=== PATIENT | female | born 1955 | race Caucasian/White ===

== ENCOUNTER 2017-04-19 10:44 | Emergency (ER) | payer MEDICAID ==
[~2017-04-19] VITALS: Ht 152.4 cm; Wt 69.6 kg
[2017-04-19 14:09] VITALS: BP 113/69
== END 2017-04-19 15:05 | disposition left against medical advice (07) ==
LOC: ED 10:53
DX: F10.229 Alcohol dependence with intoxication, unspecified (principal); H10.022 Other mucopurulent conjunctivitis, left eye
CPT/HCPCS: 99283

== ENCOUNTER 2017-04-20 03:32 | Emergency (ER) | payer MEDICAID ==
[~2017-04-20] VITALS: Ht 160 cm; Wt 75.0 kg
[2017-04-20] MEDS ORDERED: IBUPROFEN 200 MG TABLET ONE (04:22)
[2017-04-20] MEDS ORDERED: IBUPROFEN 200 MG TABLET PO ONE (04:30)
[2017-04-20 04:49] VITALS: BP 117/71
== END 2017-04-20 05:29 | disposition home or self-care (01) ==
LOC: ED 03:46
DX: F10.120 Alcohol abuse with intoxication, uncomplicated (principal); M54.5 Low back pain; M25.511 Pain in right shoulder
CPT/HCPCS: 99283

== ENCOUNTER 2017-06-07 13:50 | Emergency (ER) | payer MEDICAID ==
[~2017-06-07] VITALS: Ht 167.6 cm; Wt 70.0 kg
[2017-06-07] MEDS ORDERED: SODIUM CHLORIDE 0.9% 1,000ML IVBOLUS ONE (15:00)
[2017-06-07 15:04] LABS: HEMATOCRIT 37.9 % (34.6-47.8); HEMOGLOBIN 12.8 g/dL (11.7-16.4); WHITE BLOOD COUNT 8.9 x10^3/uL (3.4-10)
[2017-06-07 15:09] LABS: BLOOD UREA NITROGEN 7 mg/dL (7-18)
[2017-06-07 16:22] VITALS: BP 99/73
[2017-06-07] MEDS ORDERED: IBUPROFEN 200 MG TABLET ONE (17:23)
[2017-06-07] MEDS ORDERED: IBUPROFEN 200 MG TABLET PO ONE (17:30)
== END 2017-06-07 18:30 | disposition home or self-care (01) ==
LOC: ED 14:01
DX: F10.229 Alcohol dependence with intoxication, unspecified (principal); E86.0 Dehydration; E87.0 Hyperosmolality and hypernatremia
CPT/HCPCS: 36415; 80048; 82040; 85025; 99284

== ENCOUNTER 2017-09-20 14:16 | Emergency (ER) | payer MEDICAID ==
[~2017-09-20] VITALS: Ht 152.4 cm; Wt 56.5 kg
[2017-09-20] MEDS ORDERED: THIAMINE 100MG TABLET ONE (14:40)
[2017-09-20] MEDS ORDERED: ONDANSETRON ODT 4 MG ONE (14:41)
[2017-09-20] MEDS ORDERED: THIAMINE 100MG TABLET PO ONE (15:00)
[2017-09-20] MEDS ORDERED: ONDANSETRON ODT 4 MG PO ONE (15:00)
[2017-09-20 15:37] VITALS: BP 142/70
[2017-09-20] MEDS ORDERED: LORazepam 2 MG/ML, 1ML ONE (15:56)
[2017-09-20] MEDS ORDERED: LORazepam 1MG TABLET PO ONE (16:00)
[2017-09-20] MEDS ORDERED: SODIUM CHLORIDE 0.9% 1,000ML IVBOLUS ONE (16:00)
[2017-09-20] MEDS ORDERED: LORazepam 2 MG/ML, 1ML IVPush ONE (16:00)
[2017-09-20] MEDS ORDERED: ONDANSETRON 2MG/ML, 2ML IVPush ONE (16:00)
[2017-09-20] MEDS ORDERED: ONDANSETRON 2MG/ML, 2ML ONE (16:11)
== END 2017-09-20 18:06 | disposition home or self-care (01) ==
LOC: ED 18:00
DX: F10.10 Alcohol abuse, uncomplicated (principal); H10.023 Other mucopurulent conjunctivitis, bilateral; F17.210 Nicotine dependence, cigarettes, uncomplicated
CPT/HCPCS: 96361; 96374; 96375; 99284; J2060; J2405; J7030; Q0162

== ENCOUNTER 2017-09-26 00:51 | Emergency (ER) | payer MEDICAID ==
[~2017-09-26] VITALS: Ht 144.8 cm; Wt 80.0 kg
[2017-09-26 00:53] VITALS: BP 122/62
[2017-09-26] MEDS ORDERED: DIPH,PERTUSS(ACELL),TET VAC/PF 0.5 ML IM-VACC ONE ×2 (01:00→01:04)
[2017-09-26] MEDS ORDERED: LIDOCAINE-MPF 1%, 5ML INFIL ONE (01:00)
[2017-09-26] MEDS ORDERED: BACITRACIN ZINC OINT 500U/GM, 0.9 GM ONE (02:30)
== END 2017-09-26 02:59 | disposition home or self-care (01) ==
LOC: ED 01:04
DX: S01.112A Laceration without foreign body of left eyelid and periocular area, initial encounter (principal); F10.20 Alcohol dependence, uncomplicated; F17.200 Nicotine dependence, unspecified, uncomplicated; W06.XXXA Fall from bed, initial encounter; Y93.89 Activity, other specified; Y92.89 Other specified places as the place of occurrence of the external cause; Y99.9 Unspecified external cause status
CPT/HCPCS: 12014; 70450; 90471; 90715; 99284

== ENCOUNTER 2017-10-01 12:47 | Emergency (ER) | payer MEDICAID ==
[~2017-10-01] VITALS: Ht 152.4 cm; Wt 62.8 kg
[2017-10-01 12:48] VITALS: BP 159/91
== END 2017-10-01 13:22 | disposition home or self-care (01) ==
LOC: ED 13:16
DX: S01.81XD Laceration without foreign body of other part of head, subsequent encounter (principal); X58.XXXD Exposure to other specified factors, subsequent encounter; F10.20 Alcohol dependence, uncomplicated
CPT/HCPCS: 99282

== ENCOUNTER 2017-11-07 06:03 | Emergency (ER) | payer MEDICAID ==
[~2017-11-07] VITALS: Ht 152.4 cm; Wt 72.0 kg
[2017-11-07] MEDS ORDERED: NAPROXEN 500 MG TABLET PO ONE (08:00)
[2017-11-07 08:05] VITALS: BP 159/91
== END 2017-11-07 08:37 | disposition home or self-care (01) ==
LOC: ED 08:17
DX: G89.11 Acute pain due to trauma (principal); M25.551 Pain in right hip; W19.XXXA Unspecified fall, initial encounter; Y93.83 Activity, rough housing and horseplay; Y92.009 Unspecified place in unspecified non-institutional (private) residence as the place of occurrence of the external cause; Y99.9 Unspecified external cause status
CPT/HCPCS: 72190; 99284

== ENCOUNTER 2018-05-21 15:19 | Emergency (ER) | payer MEDICAID ==
[~2018-05-21] VITALS: Ht 144.8 cm; Wt 61.0 kg
[2018-05-21 15:23] VITALS: BP 120/69
[2018-05-21] MEDS ORDERED: KETOROLAC 30 MG/1 ML IM ONE (15:30)
[2018-05-21] MEDS ORDERED: KETOROLAC 30 MG/1 ML ONE (15:50)
== END 2018-05-21 16:04 | disposition left against medical advice (07) ==
LOC: ED 15:58
DX: M25.562 Pain in left knee (principal); M25.561 Pain in right knee; F10.20 Alcohol dependence, uncomplicated; F17.200 Nicotine dependence, unspecified, uncomplicated
CPT/HCPCS: 99284

== ENCOUNTER 2018-05-25 08:09 | Inpatient (IN) | payer MEDICAID ==
[~2018-05-25] VITALS: Ht 144.8 cm; Wt 58.5 kg
[2018-05-25] MEDS ORDERED: FAMOTIDINE 20 MG/2 ML IVP ONE (08:30)
[2018-05-25] MEDS ORDERED: LORazepam 1MG TABLET PO ONE (08:30)
[2018-05-25] MEDS ORDERED: THIAMINE 100 MG/ML, 2ML IM ONE (08:30)
[2018-05-25] MEDS ORDERED: MAALOX/HYOSCYAMINE/LIDOCAINE 45 ML BTL PO ONE (08:30)
[2018-05-25] MEDS ORDERED: SODIUM CHLORIDE 0.9% 1,000ML IVBOLUS ONE (08:30)
[2018-05-25] MEDS ORDERED: ONDANSETRON ODT 4 MG PO ONE (08:30)
[2018-05-25 08:39] LABS: BASOPHILS # (AUTO) 0.02 x10^3/uL (0-0.1); BASOPHILS % (AUTO) 1 % (0-1); EOSINOPHILS % (AUTO) 0 % (1-7); LYMPHOCYTES # (AUTO) 0.49 x10^3/uL (1-3.4); LYMPHOCYTES % (AUTO) 9 % (22-44); MD NO; MEAN CORPUSCULAR HGB CONC 33.3 g/dL (32.4-35.8); MEAN PLATELET VOLUME 8.9 fL (7.4-10.4); MONOCYTES # (AUTO) 0.34 x10^3/uL (0.2-0.8); MONOCYTES % (AUTO) 6 % (2-9); NEUTROPHILS # (AUTO) 4.74 x10^3/uL (1.8-6.8); NEUTROPHILS % (AUTO) 85 % (42-75); PLATELET COUNT 117 x10^3/uL (130-400); RED BLOOD COUNT 3.73 x10^6/uL (3.82-5.3); RED CELL DISTRIBUTION WIDTH 15.1 % (9.6-15.2)
[2018-05-25 08:52] LABS: ALANINE AMINOTRANSFERASE 60 U/L (12-78); ALBUMIN 3.6 g/dL (3.4-5.0); ANION GAP 13 mmol/L (5-15); CALCIUM 8.9 mg/dL (8.5-10.1); CHLORIDE 106 mmol/L (98-107); CREATININE 0.58 mg/dL (0.55-1.02)
[2018-05-25 08:54] LABS: ALKALINE PHOSPHATASE 121 U/L (45-117); BILIRUBIN,TOTAL 1.1 mg/dL (0.2-1.0); TOTAL PROTEIN 8.6 g/dL (6.4-8.2)
[2018-05-25] MEDS ORDERED: ONDANSETRON ODT 4 MG ONE (09:13)
[2018-05-25] MEDS ORDERED: THIAMINE 100 MG/ML, 2ML ONE (09:13)
[2018-05-25] MEDS ORDERED: FAMOTIDINE 20 MG/2 ML ONE (09:14)
[2018-05-25] MEDS ORDERED: LORazepam 1MG TABLET ONE (09:14)
[2018-05-25] MEDS ORDERED: MAALOX/HYOSCYAMINE/LIDOCAINE 45 ML BTL ONE (09:14)
[2018-05-25] MEDS ORDERED: LORazepam 2 MG/ML, 1ML IVPush PRN (09:30)
[2018-05-25] MEDS ORDERED: LORazepam 2 MG/ML, 1ML ONE (09:34)
[2018-05-25] MEDS ORDERED: MAGNESIUM SULFATE PMX 2GM/50ML 50 ML IV ONE (10:00)
[2018-05-25] MEDS: SODIUM CHLORIDE 0.9% 1,000 ML IV SCH ×2 (10:20→20:44)
[2018-05-25 10:26] LABS: INTERNATIONAL NORMALIZED RATIO 1.11 (0.93-1.1); PROTHROMBIN TIME 11.4 Seconds (9.6-11.5)
[2018-05-25] MEDS ORDERED: ENALAPRILAT 1.25 MG/ML, 2ML IVPush PRN (10:30)
[2018-05-25] MEDS: NICOTINE 7 MG/24 HR PATCH.TD24 TD SCH (10:30)
[2018-05-25] MEDS ORDERED: DOCUSATE 100 MG CAPSULE PO PRN (10:30)
[2018-05-25] MEDS ORDERED: POLYETHYLENE GLYCOL 17 GM PACKET PO PRN (10:30)
[2018-05-25] MEDS ORDERED: hydrALAzine 20 MG/ML, 1ML IVPush PRN (10:30)
[2018-05-25] MEDS ORDERED: ACETAMINOPHEN 325 MG TABLET PO PRN (10:30)
[2018-05-25] MEDS ORDERED: PROCHLORPERAZINE 5 MG/ML, 2ML IVPush PRN (10:30)
[2018-05-25] MEDS ORDERED: LORazepam 1MG TABLET PO PRN ×2 (10:30)
[2018-05-25] MEDS ORDERED: LORazepam 0.5MG TABLET PO PRN (10:30)
[2018-05-25] MEDS ORDERED: BISACODYL 10 MG SUPP PR PRN (10:30)
[2018-05-25 10:50] LABS: FOLATE LEVEL 7.6 ng/mL (3.1-17.5); THYROID STIMULATING HORMONE 3.35 mIU/L (0.358-3.740)
[2018-05-25] MEDS ORDERED: POTASSIUM CHLORIDE 20 MEQ in SODIUM CHLORIDE 0.9% 250 ML IV ONE (11:30)
[2018-05-25] MEDS: HEPARIN 5,000 UNITS/ML, 1ML SQ SCH ×2 (12:00→20:44)
[2018-05-25] MEDS: LORazepam 1MG TABLET PO PRN ×2 (13:55→20:44)
[2018-05-25 15:35] VITALS: BP 139/85
[2018-05-25] MEDS: POTASSIUM CHLORIDE 20 MEQ, MAGNESIUM SULFATE 2 GM, THIAMINE 100 MG, MVI ADULT 10 ML, FO... IV SCH (16:34)
[2018-05-25 19:12] VITALS: BP 114/72
[2018-05-25] MEDS: FAMOTIDINE 20 MG TABLET PO SCH (20:44)
[2018-05-26 00:16] VITALS: BP 136/78
[2018-05-26 01:00] LABS: AMPHETAMINE SCREEN, URINE Negative (Negative); BARBITURATE SCREEN, URINE Negative (Negative); BENZODIAZEPINE SCREEN, URINE Negative (Negative); CANNABINOID SCREEN, URINE Negative (Negative); COCAINE SCREEN, URINE Negative (Negative); METHADONE SCREEN, URINE Negative (Negative); OPIATE SCREEN, URINE Negative (Negative)
[2018-05-26] MEDS: POTASSIUM CHLORIDE 20 MEQ, MAGNESIUM SULFATE 2 GM, THIAMINE 100 MG, MVI ADULT 10 ML, FO... IV SCH ×2 (04:00→17:23)
[2018-05-26] MEDS: LORazepam 1MG TABLET PO PRN ×5 (04:27→23:39)
[2018-05-26] MEDS: SODIUM CHLORIDE 0.9% 1,000 ML IV SCH ×2 (04:27→20:27)
[2018-05-26] MEDS: HEPARIN 5,000 UNITS/ML, 1ML SQ SCH (04:27)
[2018-05-26 04:55] LABS: ALANINE AMINOTRANSFERASE 41 U/L (12-78); ANION GAP 10 mmol/L (5-15); CALCIUM 7.8 mg/dL (8.5-10.1); CHLORIDE 103 mmol/L (98-107)
[2018-05-26 04:57] LABS: ALKALINE PHOSPHATASE 95 U/L (45-117); BILIRUBIN,TOTAL 1.4 mg/dL (0.2-1.0); TOTAL PROTEIN 7.3 g/dL (6.4-8.2)
[2018-05-26 05:05] LABS: BASOPHILS # (AUTO) 0.04 x10^3/uL (0-0.1); BASOPHILS % (AUTO) 1 % (0-1); EOSINOPHILS # (AUTO) 0.07 x10^3/uL (0-0.4); EOSINOPHILS % (AUTO) 2 % (1-7); LYMPHOCYTES # (AUTO) 1.38 x10^3/uL (1-3.4); LYMPHOCYTES % (AUTO) 33 % (22-44); MD SCAN; MEAN CORPUSCULAR HEMOGLOBIN 36.9 pg (27.0-34.8); MEAN CORPUSCULAR HGB CONC 34.2 g/dL (32.4-35.8); MEAN CORPUSCULAR VOLUME 107.8 fL (80-100); MEAN PLATELET VOLUME 9.8 fL (7.4-10.4); MONOCYTES # (AUTO) 0.33 x10^3/uL (0.2-0.8); MONOCYTES % (AUTO) 8 % (2-9); NEUTROPHILS # (AUTO) 2.34 x10^3/uL (1.8-6.8); NEUTROPHILS % (AUTO) 56 % (42-75); PLATELET COUNT 89 x10^3/uL (130-400); RED CELL DISTRIBUTION WIDTH 14.7 % (9.6-15.2)
[2018-05-26] MEDS ORDERED: POTASSIUM CHLORIDE 20 MEQ TAB.ER.PRT PO ONE (06:30)
[2018-05-26 06:34] VITALS: BP 147/83
[2018-05-26] MEDS: FAMOTIDINE 20 MG TABLET PO SCH ×2 (09:10→20:24)
[2018-05-26] MEDS: NICOTINE 7 MG/24 HR PATCH.TD24 TD SCH (09:23)
[2018-05-26] MEDS: NEUTRA PHOS K 250 MG TABLET PO SCH ×3 (12:21→20:24)
[2018-05-26 12:38] VITALS: BP 156/84
[2018-05-26 19:19] VITALS: BP 151/89
[2018-05-27 00:56] VITALS: BP 151/88
[2018-05-27] MEDS ORDERED: LORazepam 2 MG/ML, 1ML ONE (02:31)
[2018-05-27] MEDS: LORazepam 1MG TABLET PO PRN (02:35)
[2018-05-27] MEDS: LORazepam 2 MG/ML, 1ML IV PRN ×6 (02:40→08:45)
[2018-05-27] MEDS ORDERED: LORazepam 2 MG/ML, 1ML IV PRN ×2 (03:00)
[2018-05-27 05:00] VITALS: BP 134/83
[2018-05-27] MEDS: SODIUM CHLORIDE 0.9% 1,000 ML IV SCH (05:00)
[2018-05-27 05:03] LABS: ALBUMIN 3.5 g/dL (3.4-5.0); ANION GAP 10 mmol/L (5-15); CALCIUM 8.9 mg/dL (8.5-10.1); CHLORIDE 105 mmol/L (98-107); CREATININE 0.63 mg/dL (0.55-1.02)
[2018-05-27 05:10] LABS: MEAN CORPUSCULAR HEMOGLOBIN 36.9 pg (27.0-34.8); MEAN CORPUSCULAR HGB CONC 34.5 g/dL (32.4-35.8); MEAN CORPUSCULAR VOLUME 106.9 fL (80-100); MEAN PLATELET VOLUME 10.1 fL (7.4-10.4); PLATELET COUNT 96 x10^3/uL (130-400); RED CELL DISTRIBUTION WIDTH 14.5 % (9.6-15.2)
[2018-05-27 07:05] VITALS: BP 179/85
[2018-05-27 07:34] LABS: MD SCAN
[2018-05-27 07:51] LABS: BASOS#(MANUAL) 0.06 x10^3/uL (0-0.1); BASOS% (MANUAL) 1 % (0-1); EOS#(MANUAL) 0.06 x10^3/uL (0.0-0.4); EOS% (MANUAL) 1 % (1-7); LYMPH#(MANUAL) 1.42 x10^3/uL (1-3.4); LYMPHS% (MANUAL) 24 % (22-44); MONOS#(MANUAL) 0.24 x10^3/uL (0.3-2.7); MONOS% (MANUAL) 4 % (2-9); SEG#(MANUAL) 4.13 x10^3/uL (1.8-6.8); SEGS% (MANUAL) 70 % (42-75)
[2018-05-27 07:52] LABS: <PLATELET ESTIMATE> DECREASED; LARGE PLATELETS 1+
[2018-05-27] MEDS: CHLORDIAZEPOXIDE 25 MG CAPSULE PO SCH ×2 (08:59→09:14)
[2018-05-27] MEDS: FAMOTIDINE 20 MG TABLET PO SCH ×2 (09:00→21:00)
[2018-05-27] MEDS: NEUTRA PHOS K 250 MG TABLET PO SCH ×3 (09:00→21:00)
[2018-05-27] MEDS ORDERED: DIVALPROEX 250 MG TABLET.DR PO SCH (09:00)
[2018-05-27] MEDS: GABAPENTIN 100 MG CAPSULE PO SCH ×3 (09:13→21:00)
[2018-05-27] MEDS ORDERED: DEXMEDETOMIDINE 200 MCG in SODIUM CHLORIDE 0.9% 48 ML IV PRN (12:06)
[2018-05-27] MEDS ORDERED: SODIUM CHLORIDE 0.9% IV ONE ×2 (12:30→18:30)
[2018-05-27] MEDS ORDERED: PHENOBARBITAL SODIUM IV ONE ×2 (12:30→18:30)
[2018-05-27] MEDS ORDERED: PHARMACY INSTRUCTION MC PRN ×4 (12:30)
[2018-05-27] MEDS ORDERED: BISACODYL 10 MG SUPP PR PRN (12:30)
[2018-05-27] MEDS ORDERED: DOCUSATE 100 MG CAPSULE PO PRN (12:30)
[2018-05-27] MEDS: NICOTINE 7 MG/24 HR PATCH.TD24 TD SCH (18:00)
[2018-05-27] MEDS ORDERED: POTASSIUM CHLORIDE 20 MEQ, MAGNESIUM SULFATE 2 GM, THIAMINE 100 MG, MVI ADULT 10 ML, FO... IV SCH (21:00)
[2018-05-28] MEDS: PHENOBARBITAL SODIUM 65 MG/ML, 1ML IM SCH ×2 (00:31→13:20)
[2018-05-28 04:36] LABS: ALANINE AMINOTRANSFERASE 43 U/L (12-78); ALBUMIN 3.1 g/dL (3.4-5.0); ANION GAP 7 mmol/L (5-15); CALCIUM 8.9 mg/dL (8.5-10.1); CHLORIDE 116 mmol/L (98-107); CREATININE 0.53 mg/dL (0.55-1.02)
[2018-05-28 04:38] LABS: ALKALINE PHOSPHATASE 95 U/L (45-117); BILIRUBIN,TOTAL 1.4 mg/dL (0.2-1.0); TOTAL PROTEIN 7.8 g/dL (6.4-8.2)
[2018-05-28 05:09] LABS: BASOPHILS # (AUTO) 0.02 x10^3/uL (0-0.1); BASOPHILS % (AUTO) 0 % (0-1); EOSINOPHILS # (AUTO) 0.14 x10^3/uL (0-0.4); EOSINOPHILS % (AUTO) 3 % (1-7); LYMPHOCYTES # (AUTO) 1.36 x10^3/uL (1-3.4); LYMPHOCYTES % (AUTO) 25 % (22-44); MD SCAN; MEAN CORPUSCULAR HEMOGLOBIN 36.4 pg (27.0-34.8); MEAN CORPUSCULAR HGB CONC 33.3 g/dL (32.4-35.8); MEAN CORPUSCULAR VOLUME 109.3 fL (80-100); MEAN PLATELET VOLUME 9.5 fL (7.4-10.4); MONOCYTES # (AUTO) 0.43 x10^3/uL (0.2-0.8); MONOCYTES % (AUTO) 8 % (2-9); NEUTROPHILS # (AUTO) 3.51 x10^3/uL (1.8-6.8); NEUTROPHILS % (AUTO) 64 % (42-75); PLATELET COUNT 111 x10^3/uL (130-400); RED BLOOD COUNT 3.79 x10^6/uL (3.82-5.3); RED CELL DISTRIBUTION WIDTH 15.4 % (9.6-15.2)
[2018-05-28] MEDS: SODIUM CHLORIDE 0.9% 1,000 ML IV SCH (08:14)
[2018-05-28] MEDS: NICOTINE 7 MG/24 HR PATCH.TD24 TD SCH (10:02)
[2018-05-28] MEDS: GABAPENTIN 100 MG CAPSULE PO SCH ×3 (10:02→21:23)
[2018-05-28 12:33] VITALS: BP 92/62
[2018-05-28 19:18] VITALS: BP 104/70
[2018-05-28] MEDS: MAGNESIUM SULFATE 2 GM, THIAMINE 200 MG, MVI ADULT 10 ML, FOLIC ACID 1 MG in D5%-0.9% N... IV SCH (21:22)
[2018-05-29] MEDS: PHENOBARBITAL SODIUM 65 MG/ML, 1ML IM SCH ×2 (00:39→12:06)
[2018-05-29 01:28] VITALS: BP 131/83
[2018-05-29 01:29] VITALS: BP 100/64
[2018-05-29 08:20] VITALS: BP 107/71
[2018-05-29] MEDS: GABAPENTIN 100 MG CAPSULE PO SCH ×3 (08:38→20:22)
[2018-05-29] MEDS: NICOTINE 7 MG/24 HR PATCH.TD24 TD SCH (12:05)
[2018-05-29 12:56] VITALS: BP 121/80
[2018-05-29 19:19] VITALS: BP 123/81
[2018-05-29] MEDS: MAGNESIUM SULFATE 2 GM, THIAMINE 200 MG, MVI ADULT 10 ML, FOLIC ACID 1 MG in D5%-0.9% N... IV SCH (20:22)
[2018-05-30] MEDS: PHENOBARBITAL 20 MG/5 ML ORAL SOL PO SCH ×3 (00:29→23:59)
[2018-05-30 01:22] VITALS: BP 127/81
[2018-05-30 07:10] VITALS: BP 116/77
[2018-05-30] MEDS: GABAPENTIN 100 MG CAPSULE PO SCH ×3 (08:36→19:30)
[2018-05-30] MEDS: NICOTINE 7 MG/24 HR PATCH.TD24 TD SCH (08:36)
[2018-05-30 12:48] VITALS: BP 120/77
[2018-05-30 18:30] VITALS: BP 121/74
[2018-05-30] MEDS: THIAMINE 100MG TABLET PO SCH (19:31)
[2018-05-31 01:50] VITALS: BP 126/78
[2018-05-31 06:50] VITALS: BP 118/78
[2018-05-31] MEDS: GABAPENTIN 100 MG CAPSULE PO SCH ×3 (08:55→20:08)
[2018-05-31] MEDS: CYANOCOBALAMIN 1,000 MCG TABLET PO SCH (08:55)
[2018-05-31] MEDS: NICOTINE 7 MG/24 HR PATCH.TD24 TD SCH (08:55)
[2018-05-31] MEDS: THIAMINE 100MG TABLET PO SCH ×2 (08:55→20:08)
[2018-05-31] MEDS: FOLIC ACID 1 MG TABLET PO SCH (08:55)
[2018-05-31 12:35] VITALS: BP 128/83
[2018-05-31] MEDS: PHENOBARBITAL 20 MG/5 ML ORAL SOL PO SCH (17:24)
[2018-05-31 19:02] VITALS: BP 119/82
[2018-06-01 00:59] VITALS: BP 115/75
[2018-06-01] MEDS: PHENOBARBITAL 20 MG/5 ML ORAL SOL PO SCH ×2 (04:41→17:01)
[2018-06-01 07:15] VITALS: BP 115/80
[2018-06-01] MEDS: FOLIC ACID 1 MG TABLET PO SCH (08:29)
[2018-06-01] MEDS: THIAMINE 100MG TABLET PO SCH ×2 (08:29→20:25)
[2018-06-01] MEDS: CYANOCOBALAMIN 1,000 MCG TABLET PO SCH (08:30)
[2018-06-01] MEDS: GABAPENTIN 100 MG CAPSULE PO SCH ×3 (08:30→20:25)
[2018-06-01] MEDS: NICOTINE 7 MG/24 HR PATCH.TD24 TD SCH (11:30)
[2018-06-01 14:32] VITALS: BP 103/70
[2018-06-01 18:48] VITALS: BP 114/69
[2018-06-02 00:39] VITALS: BP 100/66
[2018-06-02] MEDS: PHENOBARBITAL 20 MG/5 ML ORAL SOL PO SCH ×2 (04:57→17:49)
[2018-06-02 07:07] VITALS: BP 120/80
[2018-06-02] MEDS: THIAMINE 100MG TABLET PO SCH ×2 (09:47→21:49)
[2018-06-02] MEDS: GABAPENTIN 100 MG CAPSULE PO SCH ×3 (09:47→21:49)
[2018-06-02] MEDS: FOLIC ACID 1 MG TABLET PO SCH (09:47)
[2018-06-02] MEDS: CYANOCOBALAMIN 1,000 MCG TABLET PO SCH (09:47)
[2018-06-02 13:23] VITALS: BP 97/65
[2018-06-02] MEDS: NICOTINE 7 MG/24 HR PATCH.TD24 TD SCH (17:49)
[2018-06-02 18:35] VITALS: BP 123/82
[2018-06-03 01:08] VITALS: BP 104/62
[2018-06-03 07:05] VITALS: BP 103/70
[2018-06-03] MEDS: FOLIC ACID 1 MG TABLET PO SCH (09:10)
[2018-06-03] MEDS: CYANOCOBALAMIN 1,000 MCG TABLET PO SCH (09:10)
[2018-06-03] MEDS: GABAPENTIN 100 MG CAPSULE PO SCH (09:10)
[2018-06-03] MEDS: THIAMINE 100MG TABLET PO SCH (09:10)
== END 2018-06-03 12:46 | disposition home or self-care (01) | DRG 432 ==
LOC: ED 08:57 → EDIP 09:22 → 4EST 11:05 → CCU 05-27 11:32 → 3NE 05-28 12:29
PROVIDERS: ADMIT Internal Medicine; ATTEND Internal Medicine
DX: K70.10 Alcoholic hepatitis without ascites (principal); G92 Toxic encephalopathy; F10.231 Alcohol dependence with withdrawal delirium; F10.229 Alcohol dependence with intoxication, unspecified; D69.6 Thrombocytopenia, unspecified; D75.89 Other specified diseases of blood and blood-forming organs; E83.42 Hypomagnesemia; E87.6 Hypokalemia; Z59.0 Homelessness; Z66 Do not resuscitate; Y90.9 Presence of alcohol in blood, level not specified; F17.200 Nicotine dependence, unspecified, uncomplicated
CPT/HCPCS: 36415; 99291; J7042; S0028; 80048; 80053; 80307; 82040; 82542; 82607; 82746; 83690; 83735; 84100; 84443; 85025; 85610; 87081; 93005; 96374; 96375; G0378; J1644; J2560; J3411; J3475; J3480; Q0162; J2060; J7030; J7050

== ENCOUNTER 2019-11-12 09:32 | Emergency (ER) | payer MEDICARE, MEDICAID ==
[~2019-11-12] VITALS: Ht 152.4 cm; Wt 62.0 kg
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
[2019-11-12] MEDS ORDERED: CHLORDIAZEPOXIDE 25 MG CAPSULE PO ONE ×2 (10:00→12:00)
[2019-11-12] MEDS ORDERED: ONDANSETRON ODT 4 MG PO ONE (10:00)
[2019-11-12] MEDS ORDERED: CHLORDIAZEPOXIDE 25 MG CAPSULE ONE ×2 (10:03→12:25)
[2019-11-12] MEDS ORDERED: ONDANSETRON ODT 4 MG ONE (10:03)
--- NOTE | 2019-11-12 10:48 | NUR ---
PT CURRENTLY DOZING ON GURNEY. NAD NOTED. SKIN PWD. RESP EVEN AND UNLABORED. PT APPEARS LESS TREMULOUS AT THIS TIME. PT DENIES NEEDS AT THIS TIME. CALL LIGHT WITHIN REACH. WILL CONT TO MONITOR PT.
--- NOTE | 2019-11-12 10:52 | NUR ---
REPORT TO DAPHNE HAAS WHO ASSUMED CARE OF PT.
--- NOTE | 2019-11-12 10:53 | NUR ---
PT REPORT FROM DAPHNE MADSEN. PT CARE TO BE ASSUMED.
[2019-11-12 11:01] LABS: ALANINE AMINOTRANSFERASE 64 U/L (12-78); ALBUMIN 3.5 g/dL (3.4-5.0); ANION GAP 11 mmol/L (5-15); CALCIUM 8.6 mg/dL (8.5-10.1); CHLORIDE 106 mmol/L (98-107); CREATININE 0.57 mg/dL (0.55-1.02)
[2019-11-12 11:02] LABS: ALKALINE PHOSPHATASE 137 U/L (45-117); BILIRUBIN,TOTAL 0.6 mg/dL (0.2-1.0); TOTAL PROTEIN 8.2 g/dL (6.4-8.2)
--- NOTE | 2019-11-12 11:29 | NUR ---
PT ASLEEP, EVEN CHEST RISE & FALL NOTED. SIDE RAILS UP X2, CALL LIGHT W/IN REACH.
[2019-11-12 11:42] LABS: BASOPHILS # (AUTO) 0.06 x10^3/uL (0-0.1); BASOPHILS % (AUTO) 1 % (0-1); EOSINOPHILS # (AUTO) 0.04 x10^3/uL (0-0.4); EOSINOPHILS % (AUTO) 1 % (1-7); LYMPHOCYTES # (AUTO) 1.25 x10^3/uL (1-3.4); LYMPHOCYTES % (AUTO) 18 % (22-44); MD NO; MEAN CORPUSCULAR HEMOGLOBIN 33.1 pg (27.0-34.8); MEAN CORPUSCULAR HGB CONC 33.2 g/dL (32.4-35.8); MEAN CORPUSCULAR VOLUME 99.5 fL (80-100); MEAN PLATELET VOLUME 8.3 fL (7.4-10.4); MONOCYTES % (AUTO) 6 % (2-9); NEUTROPHILS # (AUTO) 5.25 x10^3/uL (1.8-6.8); NEUTROPHILS % (AUTO) 75 % (42-75); PLATELET COUNT 158 x10^3/uL (130-400); RED BLOOD COUNT 3.97 x10^6/uL (3.82-5.3); RED CELL DISTRIBUTION WIDTH 20.5 % (9.6-15.2)
[2019-11-12 12:31] VITALS: BP 135/83
--- NOTE | 2019-11-12 12:31 | NUR ---
LIBRIUM GIVEN PER EMAR
== END 2019-11-12 12:44 | disposition home or self-care (01) ==
LOC: ED 09:57
DX: R11.2 Nausea with vomiting, unspecified (principal); F10.220 Alcohol dependence with intoxication, uncomplicated; M25.511 Pain in right shoulder; Y90.9 Presence of alcohol in blood, level not specified
CPT/HCPCS: 36415; 80053; 80307; 83690; 85025; 99283

== ENCOUNTER 2020-12-30 15:18 | Emergency (ER) | payer MEDICARE, MEDICAID ==
[~2020-12-30] VITALS: Ht 162.6 cm; Wt 65.0 kg
[2020-12-30] MEDS ORDERED: SODIUM CHLORIDE 0.9% 1,000ML IVBOLUS ONE (16:00)
[2020-12-30 16:21] LABS: BASOPHILS % (AUTO) 0 % (0-1); EOSINOPHILS % (AUTO) 5 % (1-7); LYMPHOCYTES % (AUTO) 47 % (22-44); MEAN CORPUSCULAR HEMOGLOBIN 30.2 pg (27.0-34.8); MEAN CORPUSCULAR HGB CONC 31.8 g/dL (32.4-35.8); MEAN PLATELET VOLUME 7.5 fL (7.4-10.4); MONOCYTES % (AUTO) 10 % (2-9); NEUTROPHILS % (AUTO) 38 % (42-75); PLATELET COUNT 235 x10^3/uL (130-400); RED BLOOD COUNT 4.62 x10^6/uL (3.82-5.3); RED CELL DISTRIBUTION WIDTH 19.7 % (9.6-15.2)
[2020-12-30 16:34] LABS: ALANINE AMINOTRANSFERASE 20 U/L (12-78); ALBUMIN 3.6 g/dL (3.4-5.0); ANION GAP 6 mmol/L (5-15); CALCIUM 8.9 mg/dL (8.5-10.1); CHLORIDE 114 mmol/L (98-107); CREATININE 0.65 mg/dL (0.55-1.02)
[2020-12-30 16:37] LABS: ALKALINE PHOSPHATASE 120 U/L (45-117); BILIRUBIN,TOTAL 0.2 mg/dL (0.2-1.0); TOTAL PROTEIN 8.2 g/dL (6.4-8.2)
[2020-12-30 16:38] LABS: MD SCAN
[2020-12-30 17:11] VITALS: BP 151/89
== END 2020-12-30 17:13 | disposition home or self-care (01) ==
LOC: ED 15:30
DX: R10.11 Right upper quadrant pain (principal); Z20.822 Contact with and (suspected) exposure to COVID-19; B34.9 Viral infection, unspecified; F17.210 Nicotine dependence, cigarettes, uncomplicated; Z72.9 Problem related to lifestyle, unspecified; F10.10 Alcohol abuse, uncomplicated; Y90.0 Blood alcohol level of less than 20 mg/100 ml; Z59.0 Homelessness; Z88.0 Allergy status to penicillin
CPT/HCPCS: 36415; 71045; 80053; 83690; 85025; 93005; 99285; U0003; U0005

== ENCOUNTER 2021-01-19 21:17 | Emergency (ER) | payer MEDICARE, MEDICAID ==
[~2021-01-19] VITALS: Ht 152.4 cm; Wt 63.6 kg
[2021-01-19 21:23] VITALS: BP 133/84
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
--- NOTE | 2021-01-19 23:13 | NUR ---
PT RESTING WITH EYES CLOSED, EVEN AND SYMMETRICAL CHEST RISE, VSS
== END 2021-01-20 00:39 | disposition home or self-care (01) ==
LOC: ED 21:22
DX: S06.0X0A Concussion without loss of consciousness, initial encounter (principal); S00.81XA Abrasion of other part of head, initial encounter; F10.120 Alcohol abuse with intoxication, uncomplicated; G31.2 Degeneration of nervous system due to alcohol; Z72.9 Problem related to lifestyle, unspecified; F17.200 Nicotine dependence, unspecified, uncomplicated; W18.30XA Fall on same level, unspecified, initial encounter; Y93.89 Activity, other specified; Y92.89 Other specified places as the place of occurrence of the external cause; Y99.8 Other external cause status
CPT/HCPCS: 70450; 99284

== ENCOUNTER 2021-01-27 19:35 | Emergency (ER) | payer MEDICARE, MEDICAID ==
[~2021-01-27] VITALS: Ht 152.4 cm; Wt 62.8 kg
[2021-01-27 19:39] VITALS: BP 143/80
[2021-01-27] MEDS ORDERED: MUPIROCIN CRM 2%, 15GM TP ONE (20:30)
[2021-01-27] MEDS ORDERED: NEOSPORIN OINT. PKT 1 PACKET ONE (20:37)
--- NOTE | 2021-01-27 20:59 | NUR ---
REPORT TO DAPHNE WALTERS
[2021-01-27] MEDS ORDERED: MUPIROCIN OINT 2%, 15GM TP ONE (21:00)
--- NOTE | 2021-01-27 21:16 | NUR ---
Patient/Caregiver given discharge instructions and they have confirmed that they understand the instructions. Patient ambulatory with steady gait.
== END 2021-01-27 21:17 | disposition home or self-care (01) ==
LOC: ED 20:52
DX: L03.114 Cellulitis of left upper limb (principal); M79.632 Pain in left forearm; F10.10 Alcohol abuse, uncomplicated; F17.210 Nicotine dependence, cigarettes, uncomplicated; L98.499 Non-pressure chronic ulcer of skin of other sites with unspecified severity; Y90.0 Blood alcohol level of less than 20 mg/100 ml
CPT/HCPCS: 99406

== ENCOUNTER 2021-04-29 10:16 | Emergency (ER) | payer MEDICARE, MEDICAID ==
[~2021-04-29] VITALS: Ht 152.4 cm; Wt 60.0 kg
[2021-04-29 10:34] VITALS: BP 108/68
--- NOTE | 2021-04-29 11:18 | NUR ---
[employer]: PT WONDERING THE HALLS, WHEN ASKED IF I CAN HELP HER, IF SHE NEEDS THE BR, "I HAVE ALREADY BEEN. I'M LOOKING FOR THE DOOR. I'M HUNGRY, I HAVENT EATEN, I'M IRRITATED." PT SHOWN WHERE THE DOOR IS, LEFT AMB, GAIT STEADY
== END 2021-04-29 11:22 | disposition left against medical advice (07) ==
LOC: ED 11:00
DX: M79.621 Pain in right upper arm (principal)
CPT/HCPCS: 99283